=== PATIENT | male | born 1950 | race Caucasian/White ===

== ENCOUNTER 2017-02-26 11:08 | Emergency (ER) | payer OTHER ==
[~2017-02-26 11:08] MED LIST: *UNABLE2; AMIT25; ASA5GR PO; AUG875 PO; BEN25 PO; CHANTIX1 PO; CHEMO TREATMENT IV; ENDOCET1 TA3 PO; FLORASTOR250 MG PO; LIOR10; LIOR10 PO; MSCONT15 PO; MSCONT60 PO; MSCONTIN; NEUR300 PO; NEUR600 PO; NORV5 PO; PERCOCET1 TA2 PO; PERCOCET1 TA4 PO; PRIN10 PO; PROAIR HFA INH; TRAZ100 PO; VENTOLIN HFA INH
[2017-02-26 11:17] LABS: HEMOGLOBIN 12.5 g/dL (13.6-17.8); MEAN CORPUSCULAR HEMOGLOB 30.5 pg (26.0-34.0); MEAN PLATELET VOLUME 10.1 fL (9.2-13.0); PLATELET COUNT 230 10/3/uL (150-400); RBC DISTRIBUTION WIDTH 13.9 % (12.0-16.0); WHITE BLOOD CELLS 14.8 10/3/uL (4.5-10.5)
[2017-02-26 11:20] LABS: HEMATOCRIT 36.8 % (40.0-51.0); MANUAL DIFF YES %; MEAN CORPUSCULAR VOLUME 89.8 fL (80-100)
[2017-02-26 11:24] LABS: INTERNATIONAL NORMAL RATI 1.2 UNITS (-); PARTIAL THROMBO TIME 27.4 SEC (22.5-37.2)
[2017-02-26 11:34] LABS: BUN (BLOOD UREA NITROGEN) 10 MG/DL (6-23); CALCIUM, SERUM 8.2 MG/DL (8.5-10.4); CHEST PAIN PROFILE TAT 0 Hrs 21 Mins; CHLORIDE, SERUM 107 MMOL/L (96-112); CO2 (CARBON DIOXIDE) 28 MMOL/L (24-34); CREATININE 0.56 MG/DL (0.70-1.30); GFR AFRICAN AMERICAN 125 ML/MIN (>=60); GFR NON AFRICAN AMERICAN 108 ML/MIN (>=60); GLUCOSE, SERUM 120 MG/DL (60-99); SODIUM, SERUM 141 MMOL/L (135-148); TROPONIN I <0.02 NG/ML (<0.05)
[2017-02-26 11:40] LABS: BAND NEUTROPHILS 7 %; EOSINOPHILS 10 %; EOSINOPHILS ABSOLUTE (CALC) 1.48 10/3/uL (0.0-0.53); ER DIFF TAT 0 Hrs 27 Mins; LYMPHOCYTES 6 %; LYMPHOCYTES ABSOLUTE (CALC) 0.89 10/3/uL (0.67-4.30); MONOCYTES 13 %; MONOCYTES ABSOLUTE (CALC) 1.92 10/3/uL (0.21-1.20); NEUTROPHILS ABSOLUTE (CALC) 10.51 10/3/uL (2.02-8.40); PLATELET ESTIMATE ADQ (ADEQUATE); RBC MORPHOLOGY NORM (NORMAL); SEGMENTED NEUTROPHIL (0) 64 %; TOTAL NUCLEATED CELLS 100
[2017-02-26 11:56] LABS: ASCORBIC ACID (UR NOT ORDER) NEG (NEG); BILIRUBIN, URINE NEGATIVE (NEG); ER URINALYSIS TAT 0 Hrs 18 Mins; KETONE, URINE NEGATIVE (NEG); LEUKOCYTE ESTERASE(NOT OR NEG (NEG); NITRITE (URINE) NEG (NEG); WBC (NOT ORDERED) (RFLEX) < 1 (0-5)
[2017-05-12] MEDS ORDERED: MSCONT100 PO (01:32)
[2017-05-12] MEDS ORDERED: OXYCOD PO (01:32)
[2017-05-12] MEDS ORDERED: BUSPAR15 M1 PO (01:33)
[2017-05-12] MEDS ORDERED: NEUR600 PO (01:33)
[2017-05-12] MEDS ORDERED: LEVAQUIN PO (01:34)
[2017-05-12] MEDS ORDERED: ATV1 PO (01:35)
== END 2017-02-26 14:19 | disposition home or self-care (01) ==
LOC: ER 11:08
PROVIDERS: Emergency Medicine
DX: Z59.4 Lack of adequate food (principal); T50.905A Adverse effect of unspecified drugs, medicaments and biological substances, initial encounter; C61 Malignant neoplasm of prostate; C77.9 Secondary and unspecified malignant neoplasm of lymph node, unspecified; F17.200 Nicotine dependence, unspecified, uncomplicated; Z86.19 Personal history of other infectious and parasitic diseases; Z79.899 Other long term (current) drug therapy
CPT/HCPCS: 80048; 81001; 83735; 84484; 85025; 85610; 85730; 93005; 99285

== ENCOUNTER 2017-03-06 13:46 | Emergency (ER) | payer OTHER ==
[2017-03-06 13:06] LABS: BASOPHILS 0.2 %; BASOPHILS ABSOLUTE 0.03 10/3/uL (0.0-0.16); EOSINOPHILS 11.2 %; EOSINOPHILS ABSOLUTE 1.93 10/3/uL (0.0-0.53); ER CBC TAT 0 Hrs 05 Mins; HEMATOCRIT 34.6 % (40.0-51.0); HEMOGLOBIN 11.6 g/dL (13.6-17.8); IMMATURE GRANULOCYTES 0.6 %; LYMPHOCYTES 4.7 %; MEAN CORPUS HGB CONC 33.5 g/dL (32.0-36.0); MEAN CORPUSCULAR HEMOGLOB 30.3 pg (26.0-34.0); MEAN CORPUSCULAR VOLUME 90.3 fL (80-100); MEAN PLATELET VOLUME 10.1 fL (9.2-13.0); MONOCYTES 2.4 %; MONOCYTES ABSOLUTE 0.42 10/3/uL (0.21-1.20); NEUTROPHILS 80.9 %; NEUTROPHILS ABSOLUTE 13.88 10/3/uL (2.02-8.40); PLATELET COUNT 175 10/3/uL (150-400); RBC DISTRIBUTION WIDTH 14.2 % (12.0-16.0); RED CELL COUNT 3.83 10/6/uL (4.7-6.1); WHITE BLOOD CELLS 17.2 10/3/uL (4.5-10.5)
[2017-03-06 13:11] LABS: MANUAL DIFF NO %
[2017-03-06 13:22] LABS: A/G RATIO 0.6 (0.7-1.9); ALBUMIN 2.3 G/DL (3.5-5.0); ALKALINE PHOSPHATASE 176 U/L (45-117); BUN (BLOOD UREA NITROGEN) 19 MG/DL (6-23); CALCIUM, SERUM 8.2 MG/DL (8.5-10.4); CHLORIDE, SERUM 106 MMOL/L (96-112); CO2 (CARBON DIOXIDE) 31 MMOL/L (24-34); CREATININE 0.66 MG/DL (0.70-1.30); GFR AFRICAN AMERICAN 117 ML/MIN (>=60); GFR NON AFRICAN AMERICAN 101 ML/MIN (>=60); GLOBULIN 4.1 G/DL (2.5-4.1); GLUCOSE, SERUM 111 MG/DL (60-99); POTASSIUM, SERUM 3.8 MMOL/L (3.5-5.3); SGOT(AST) 70 U/L (5-40); SGPT(ALT) 82 U/L (5-65); SODIUM, SERUM 141 MMOL/L (135-148); TOTAL BILIRUBIN 0.9 MG/DL (0-1.2); TOTAL PROTEIN 6.4 G/DL (6.0-8.5)
[2017-03-06 13:24] LABS: INTERNATIONAL NORMAL RATI 1.2 UNITS (-)
[2017-03-06 14:25] LABS: ASCORBIC ACID (UR NOT ORDER) NEG (NEG); BILIRUBIN, URINE NEGATIVE (NEG); ER URINALYSIS TAT 0 Hrs 10 Mins; KETONE, URINE NEGATIVE (NEG); LEUKOCYTE ESTERASE(NOT OR NEG (NEG); NITRITE (URINE) NEG (NEG); WBC (NOT ORDERED) (RFLEX) 1 (0-5)
[2017-05-12] MEDS ORDERED: MSCONT100 PO (01:32)
[2017-05-12] MEDS ORDERED: OXYCOD PO (01:32)
[2017-05-12] MEDS ORDERED: BUSPAR15 M1 PO (01:33)
[2017-05-12] MEDS ORDERED: NEUR600 PO (01:33)
[2017-05-12] MEDS ORDERED: LEVAQUIN PO (01:34)
[2017-05-12] MEDS ORDERED: ATV1 PO (01:35)
== END 2017-03-06 16:09 | disposition home or self-care (01) ==
LOC: ER 13:46
PROVIDERS: Emergency Medicine
DX: R50.9 Fever, unspecified (principal); C61 Malignant neoplasm of prostate; C79.31 Secondary malignant neoplasm of brain; C79.2 Secondary malignant neoplasm of skin; J44.9 Chronic obstructive pulmonary disease, unspecified; I10 Essential (primary) hypertension; I25.10 Atherosclerotic heart disease of native coronary artery without angina pectoris; F17.200 Nicotine dependence, unspecified, uncomplicated; Z79.899 Other long term (current) drug therapy
CPT/HCPCS: 71010; 80053; 81001; 83605; 83690; 85025; 85610; 87040; 93005; 96365; 99285; A9270-GY; J0690; J0692